=== PATIENT | female | born 1950 | race Caucasian/White ===

== ENCOUNTER 2018-05-26 11:09 | Emergency (ER) | payer MEDICARE, OTHER ==
[~2018-05-26] VITALS: Ht 162.6 cm; Wt 59.0 kg
[~2018-05-26 11:09] MED LIST: ALENDRONATE SOD70 MG PO; ATORVASTATIN CA40 MG PO; BAYER CHEWABLE81 MG PO; BISOPROLOL FUMAR5 M1 PO; BISOPROLOL FUMAR5 MG PO; CALCIUM CITRAT250 MG PO; COZAAR 25 MG TA25 M1 PO; EFFIENT10 MG PO; HYTRIN 5 M5 MG/1 CAP PO; NEURONTIN600 MG PO; NITROGLYCERIN0.4 MG SUBLING; NORVASC10 MG PO; PLAVIX 75 MG TA75 M1 PO; SYMBICORT80 MCG/4.1 INH
[2018-05-26] MEDS ORDERED: CYMBALTA20 MG PO (11:19)
[2018-05-26] MEDS ORDERED: HYDROCODONE-AP1 EAC6 PO (11:59)
[2018-05-26 12:05] VITALS: BP 178/82
== END 2018-05-26 12:06 | disposition home or self-care (01) ==
LOC: M.ERS 11:09
DX: S20.212A Contusion of left front wall of thorax, initial encounter (principal); I10 Essential (primary) hypertension; J44.9 Chronic obstructive pulmonary disease, unspecified; Z90.49 Acquired absence of other specified parts of digestive tract; W10.8XXA Fall (on) (from) other stairs and steps, initial encounter; Y93.89 Activity, other specified; Y92.89 Other specified places as the place of occurrence of the external cause; Y99.8 Other external cause status

== ENCOUNTER → 2018-12-20 | Outpatient (CLI) | payer MEDICARE, OTHER ==
[~2018-12-20] MED LIST changes: +CYMBALTA20 MG PO; +HYDROCODONE-AP1 EAC6 PO
--- NOTE | 2018-12-20 17:06 | CARDNUC ---
[place] [address] CARDIAC NUCLEAR IMAGING REPORT Name: JOURDANHANNAH HENLEYN Room: [facility]#: [id number] Admission: 12/20/18 Attend Phys: Ted Concepcion, Discharge: Date of : 52 Date of Service: 12/20/18 1705 Report #: [id number] THIS REPORT FOR: //name// APPROVED REPORT Study performed: 12/20/2018 09:09:35 Exam: Nuclear Stress Test Indication: Chest pain, CAD s/p PCI Patient Location: Out-Patient Stress Tech: Carli Saavedra Stress Nurse: Garima Valero RN Ht: 5 ft 4 in Wt: 141 lbs BSA: 1.69 m2 BMI: 24.20 Medical History Medical History: Angina, CAD s/p stent, Fatigue, HTN, Hyperlipidemia, Weakness. Medications: Amlodipine, ASA 81 mg, Atorvastatin, Bisoprolol, Losartan. Allergies: Sulfa ABT. Cardiac Risk Factors: Age, HTN, Hyperlipidemia, Past Smoker. Previous Cardiac Procedures: PCI Pretest Chest Pain Characteristics: No chest pain Exercise History: Indeterminate Physical Disabilities: Generalized weakness, fatigue, SOA. Meds Held (24 hrs): Bisoprolol. Stress Test Details Stress Test: Pharmacologic stress was paired with low level exercise. Reason for pharmacologic stress test: Generalized weakness/Fatigue, Nerve pain in back and left leg.. HR Resting HR: 74 bpm Max Heart Rate (APMHR): 153 bpm Max HR Achieved: 119 bpm Target HR (85% APMHR): 130 bpm % of APMHR: 77 Recovery HR: 90 bpm BP Resting BP: 135/80 mmHg Max BP: 157/69 [place] [address] CARDIAC NUCLEAR IMAGING REPORT Name: AHNNAH SOLIMAN KOURTNEY Room: [facility]#: [id number] Admission: 12/20/18 Attend Phys: Ted Concepcion, Discharge: Date of : 52 Date of Service: 12/20/18 1705 Report #: [id number] Resting ECG: Sinus Rhythm Stress ECG: Sinus Rhythm ST Change: None Arrhythmia: None Recovery ECG: Sinus Rhythm Recovery ST Change: None Recovery Arrhythmia: None Clinical Reason for Termination: Completed protocol Stress Symptoms: Dyspnea Exercise duration: 4 min 00 sec Exercise capacity: 2.30 METs Patient tolerated Lexiscan infusion without symptoms. Nurse Comments 68 year old female presented with HX of CP and CAD s/p PCI. Due to patient back and leg (nerve) pain a low, slow treadmill with Lexiscan was performed. Patient tolerated walking Lexiscan well. Recovery unremarkable with PO caffeine, effective. Patient was escorted by staff to Nuclear Medicine for images. Patient was stable with no complaints at that time. Stress ECG Conclusion The baseline 12-lead EKG showed sinus rhythm and ST or T-wave abnormalities. EKGs obtained during and post Lexiscan infusion showed sinus rhythm and no significant ST or T wave changes when compared to baseline. There were no stress-induced arrhythmias. NM EXAM: Myocardial Perfusion REST/STRESS Resting Data Rest SPECT myocardial perfusion imaging was performed in supine position 30 minutes following the intravenous injection of 10.7 mCi of Tc-99m Sestamibi. Time of rest injection: 08:00 The images were gated to evaluate regional wall motion and calculate left ventricular ejection fraction. Administration Route: IV Administration Site: Right AC Pharmacologic Stress Pharmacologic stress test was performed by injecting Regadenoson 0.4 mg IV push followed by the intravenous injection of 32.8 mCi of Tc-99m Sestamibi. Time of stress injection: 09:20 [place] [address] CARDIAC NUCLEAR IMAGING REPORT Name: HANNAH SOLIMAN Room: [facility]#: [id number] Admission: 12/20/18 Attend Phys: Ted Concepcion, Discharge: Date of : 52 Date of Service: 12/20/18 1705 Report #: [id number] Administration Route: IV Administration Site: Right AC Heart Rate at time of stress injection: 94 bpm. Gated Stress SPECT was performed 45 minutes after stress injection. The images were gated to evaluate regional wall motion and calculate left ventricular ejection fraction. Prone imaging was performed. Study Quality Study: Good Artifact: Mild Diaphragmatic artifact Study Data At rest, the left ventricular ejection fraction was 76%.. Post stress, the left ventricular ejection was 80%.. TID = 0.86. Perfusion Perfusion images obtained in the supine position at rest and post Lexiscan stress showed mild anemia of the inferior wall that resolved completely with a stress imaging suggesting diaphragmatic attenuation artifact. No other significant fixed or reversible defects are quite. Wall Motion Normal left ventricular wall motion. Nuclear Conclusion ECG Findings: negative for ischemia Clinical Findings: negative for ischemia Nuclear Findings: negative for ischemia Exercise Capacity: not assessed Left Ventricular Function: normal Risk Study: low Myocardial perfusion images showed no defect to suggest myocardial infarction or ischemia. Left ventricular systolic function appears normal on gated images. This is a low risk study. <Conclusion> The baseline 12-lead EKG showed sinus rhythm and ST or T-wave abnormalities. EKGs obtained during and post Lex[place] [address] CARDIAC NUCLEAR IMAGING REPORT Name: HANNAH SOLIMANN Room: [facility]#: [id number] Admission: 12/20/18 Attend Phys: Ted Concepcion, Discharge: Date of : 52 Date of Service: 12/20/18 1705 Report #: [id number] sinus rhythm and no significant ST or T wave changes when compared to baseline. There were no stress-induced arrhythmias. <ELECTRONICALLY SIGNED> By: Christopher Garcia MD, FACC 12/20/181704 04 04 Christopher Garcia MD, FACC /INF
== END ==
LOC: M.NUC 01-07 17:12
DX: I25.10 Atherosclerotic heart disease of native coronary artery without angina pectoris (principal); I10 Essential (primary) hypertension; E78.5 Hyperlipidemia, unspecified; Z88.2 Allergy status to sulfonamides; Z87.891 Personal history of nicotine dependence; Z79.899 Other long term (current) drug therapy

== ENCOUNTER 2020-04-04 18:46 | Inpatient (IN) | payer MEDICARE, OTHER ==
[~2020-04-04] VITALS: Ht 162.6 cm; Wt 76.7 kg
[2020-04-04 18:57] VITALS: BP 122/60
[2020-04-04 19:31] LABS: ABSOLUTE LYMPHOCYTES 0.6 thou/uL (0.8-5.3); ABSOLUTE MONOCYTES 0.7 thou/uL (0.0-1.2); ABSOLUTE NEUTROPHILS 4.7 thou/uL (1.6-8.1); BASOPHILS 0.5 %; EOSINOPHILS 0.2 %; HEMATOCRIT 36.6 % (37.0-47.0); HEMOGLOBIN 12.3 gm/dL (12.0-15.0); LYMPHOCYTES 9.8 %; MCH 32.4 pg (26.0-34.0); MCHC 33.5 g/dL (28.0-37.0); MCV 96.9 fL (80.0-100.0); MONOCYTES 11.7 %; MPV 9.4 fl. (7.2-11.1); NUCLEATED RBCS 0 /100WBC; PLATELET COUNT* 201 thou/uL (150-400); POLYS 77.8 %; RBC 3.78 mil/uL (4.20-5.00); RDW-CV 12.9 % (10.5-14.5); WBC 6.1 thou/uL (4.0-11.0)
[2020-04-04 19:39] LABS: APTT 26.2 Seconds (25.0-31.3); CALCIUM 7.9 mg/dL (8.5-10.1); CREATININE 1.7 mg/dL (0.6-1.3)
[2020-04-04 19:49] LABS: ALBUMIN 2.9 g/dL (3.4-5.0); MAGNESIUM 1.9 mg/dL (1.8-2.4); TOTAL BILIRUBIN 0.3 mg/dL (<0.1-1.0)
[2020-04-04 20:00] VITALS: BP 104/53
[2020-04-04 21:24] VITALS: BP 117/60
[2020-04-05] VITALS (7 sets, daily range): BP systolic 84–107; BP diastolic 44–78
[2020-04-05 10:23] LABS: CALCIUM 7.4 mg/dL (8.5-10.1); CREATININE 1.5 mg/dL (0.6-1.3); MAGNESIUM 1.9 mg/dL (1.8-2.4); POTASSIUM 4.8 mmol/L (3.5-5.1)
[2020-04-05 10:25] LABS: BE -9.5 mmol/L (-2 to +3); PCO2 30.8 mmHg (35.0-45.0); PO2 60.3 mmHg (75.0-100.0); pH 7.318 (7.340-7.450)
[2020-04-05 14:30] LABS: CALCIUM 7.2 mg/dL (8.5-10.1); CREATININE 1.4 mg/dL (0.6-1.3); POTASSIUM 4.2 mmol/L (3.5-5.1)
[2020-04-05 20:34] LABS: BE -9.6 mmol/L (-2 to +3); PCO2 27.7 mmHg (35.0-45.0); pH 7.342 (7.340-7.450)
[2020-04-06] VITALS (8 sets, daily range): BP systolic 100–138; BP diastolic 50–81
[2020-04-06 03:39] LABS: HEMATOCRIT 32.6 % (37.0-47.0); HEMOGLOBIN 11.1 gm/dL (12.0-15.0); MCH 32.5 pg (26.0-34.0); MCHC 34.1 g/dL (28.0-37.0); MCV 95.5 fL (80.0-100.0); MPV 9.6 fl. (7.2-11.1); NUCLEATED RBCS 0 /100WBC; PLATELET COUNT* 251 thou/uL (150-400); RBC 3.41 mil/uL (4.20-5.00); RDW-CV 12.7 % (10.5-14.5)
[2020-04-06 03:58] LABS: ALBUMIN 2.3 g/dL (3.4-5.0); CALCIUM 7.3 mg/dL (8.5-10.1); CREATININE 1.3 mg/dL (0.6-1.3); MAGNESIUM 2.6 mg/dL (1.8-2.4); POTASSIUM 4.1 mmol/L (3.5-5.1); TOTAL BILIRUBIN 0.2 mg/dL (<0.1-1.0); TOTAL PROTEIN 5.8 g/dL (6.4-8.2)
[2020-04-06 06:13] LABS: ABSOLUTE LYMPHOCYTES 0.7 thou/uL (0.8-5.3); ABSOLUTE MONOCYTES 0.1 thou/uL (0.0-1.2); ABSOLUTE NEUTROPHILS 10.2 thou/uL (1.6-8.1)
[2020-04-06 06:14] LABS: BURR CELLS 1+; PLATELET ESTIMATE ADEQUATE
[2020-04-06 06:15] LABS: POLYCHROMASIA 1+
[2020-04-06 09:02] LABS: BE -0.6 mmol/L (-2 to +3); PCO2 34.1 mmHg (35.0-45.0); pH 7.445 (7.340-7.450)
[2020-04-06 09:07] LABS: PO2 54.8 mmHg (75.0-100.0)
--- NOTE | 2020-04-06 10:45 | EKG ---
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 04/06/20 1044 1855 1855 Eagle Ospina MD, [facility] /EPI
--- NOTE | 2020-04-06 14:34 | EKG ---
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 : 1950 Requested By: Maximiliano Cummings Order Number: [id number] Reading MD: Christopher Garcia Measurements Intervals [place] Rate: 86 P: 80 TN: 134 QRS: 46 QRSD: 89 T: 41 QT: 389 QTc: 466 Interpretive Statements Sinus rhythm Ventricular premature complex Baseline wander in lead(s) V6 Compared to ECG 04/04/2020 18:55:44 Ventricular premature complex(es) now present Myocardial infarct finding no longer present Electronically Signed On 04-06-2020 14:34:33 CDT by Christopher Garcia [email or web address] <ELECTRONICALLY SIGNED> By: Christopher Garcia MD, FACC 04/06/20 1434 1058 1058 Christopher Garcia MD, FAC /EPI
[2020-04-07] VITALS: BP 108/63
[2020-04-07 04:00] VITALS: BP 109/79
[2020-04-07 06:38] LABS: ABSOLUTE LYMPHOCYTES 0.5 thou/uL (0.8-5.3); ABSOLUTE MONOCYTES 0.9 thou/uL (0.0-1.2); ABSOLUTE NEUTROPHILS 15.3 thou/uL (1.6-8.1); BASOPHILS 0.1 %; HEMATOCRIT 34.7 % (37.0-47.0); HEMOGLOBIN 11.4 gm/dL (12.0-15.0); LYMPHOCYTES 2.9 %; MCH 31.6 pg (26.0-34.0); MCHC 32.9 g/dL (28.0-37.0); MCV 96.1 fL (80.0-100.0); MONOCYTES 5.3 %; NUCLEATED RBCS 0 /100WBC; POLYS 91.7 %; RBC 3.62 mil/uL (4.20-5.00); RDW-CV 12.8 % (10.5-14.5); WBC 16.7 thou/uL (4.0-11.0)
[2020-04-07 06:42] LABS: PLATELET COUNT* 359 thou/uL (150-400)
[2020-04-07 06:55] LABS: ALBUMIN 2.4 g/dL (3.4-5.0); CALCIUM 7.3 mg/dL (8.5-10.1); CREATININE 1.2 mg/dL (0.6-1.3); MAGNESIUM 2.2 mg/dL (1.8-2.4); PHOSPHORUS* 3.7 mg/dL (2.5-4.9); POTASSIUM 4.1 mmol/L (3.5-5.1); TOTAL BILIRUBIN 0.3 mg/dL (<0.1-1.0); TOTAL PROTEIN 6.1 g/dL (6.4-8.2)
[2020-04-07 08:00] VITALS: BP 129/69
[2020-04-07 13:13] VITALS: BP 141/66
[2020-04-07 15:19] LABS: CALCIUM 7.7 mg/dL (8.5-10.1); CREATININE 1.2 mg/dL (0.6-1.3); POTASSIUM 3.7 mmol/L (3.5-5.1)
[2020-04-07 17:06] LABS: HIV-1/HIV-2 ANTIBODY Non Reactive (Non Reactive)
[2020-04-07 17:06] LABS: HEPATITIS B SURFACE AG Negative (Negative)
[2020-04-07 19:01] VITALS: BP 137/71
[2020-04-07 20:00] VITALS: BP 129/74
[2020-04-08 00:32] VITALS: BP 134/67
[2020-04-08 04:43] VITALS: BP 125/59
[2020-04-08 05:20] LABS: ABSOLUTE LYMPHOCYTES 0.5 thou/uL (0.8-5.3); ABSOLUTE MONOCYTES 0.8 thou/uL (0.0-1.2); ABSOLUTE NEUTROPHILS 13.1 thou/uL (1.6-8.1); BASOPHILS 0.1 %; HEMATOCRIT 34.5 % (37.0-47.0); HEMOGLOBIN 11.6 gm/dL (12.0-15.0); LYMPHOCYTES 3.5 %; MCHC 33.7 g/dL (28.0-37.0); MONOCYTES 5.8 %; MPV 9.7 fl. (7.2-11.1); NUCLEATED RBCS 0 /100WBC; PLATELET COUNT* 384 thou/uL (150-400); POLYS 90.6 %; RBC 3.63 mil/uL (4.20-5.00); RDW-CV 13.1 % (10.5-14.5); WBC 14.5 thou/uL (4.0-11.0)
[2020-04-08 05:31] LABS: ALBUMIN 2.5 g/dL (3.4-5.0); CALCIUM 7.8 mg/dL (8.5-10.1); CREATININE 1.4 mg/dL (0.6-1.3); POTASSIUM 3.3 mmol/L (3.5-5.1); TOTAL BILIRUBIN 0.4 mg/dL (<0.1-1.0); TOTAL PROTEIN 6.1 g/dL (6.4-8.2)
[2020-04-08 08:00] VITALS: BP 140/77
[2020-04-08 12:25] VITALS: BP 140/68
[2020-04-08 20:00] VITALS: BP 132/76
[2020-04-09] VITALS: BP 139/66
[2020-04-09 04:00] VITALS: BP 147/68
[2020-04-09 06:00] LABS: ABSOLUTE LYMPHOCYTES 0.5 thou/uL (0.8-5.3); ABSOLUTE MONOCYTES 0.8 thou/uL (0.0-1.2); ABSOLUTE NEUTROPHILS 10.3 thou/uL (1.6-8.1); BASOPHILS 0.2 %; HEMOGLOBIN 11.3 gm/dL (12.0-15.0); LYMPHOCYTES 4.2 %; MCH 31.7 pg (26.0-34.0); MCHC 33.2 g/dL (28.0-37.0); MCV 95.4 fL (80.0-100.0); MPV 9.3 fl. (7.2-11.1); NUCLEATED RBCS 0 /100WBC; PLATELET COUNT* 404 thou/uL (150-400); POLYS 88.6 %; RBC 3.56 mil/uL (4.20-5.00); RDW-CV 13.1 % (10.5-14.5); WBC 11.6 thou/uL (4.0-11.0)
[2020-04-09 06:14] LABS: CALCIUM 8.2 mg/dL (8.5-10.1); CREATININE 1.3 mg/dL (0.6-1.3); MAGNESIUM 2.1 mg/dL (1.8-2.4); POTASSIUM 4.2 mmol/L (3.5-5.1)
[2020-04-09 08:00] VITALS: BP 128/70
[2020-04-09 12:00] VITALS: BP 125/66
[2020-04-09 16:00] VITALS: BP 114/63
[2020-04-09 20:00] VITALS: BP 136/78
[2020-04-10] VITALS: BP 143/73
[2020-04-10 04:00] VITALS: BP 146/67
[2020-04-10 08:00] VITALS: BP 149/88
[2020-04-10 13:16] VITALS: BP 111/70
[2020-04-10 17:48] VITALS: BP 117/66
[2020-04-10 20:45] VITALS: BP 129/74
[2020-04-11] VITALS: BP 125/68
[2020-04-11 04:00] VITALS: BP 140/60
[2020-04-11 08:09] VITALS: BP 148/75
[2020-04-11] MEDS ORDERED: VENTOLIN HFA INH8 GM INH (08:20)
[2020-04-11] MEDS ORDERED: PREDNISONE 10 M10 MG PO (08:20)
[2020-04-11 11:43] VITALS: BP 148/75
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
== END 2020-04-11 14:02 | disposition home health service (06) | DRG 177 ==
LOC: M.ERS 18:46 → M.2W 20:19 → M.TBA-ER 20:19 → M.2W 21:36
PROVIDERS: Family Medicine; Internal Medicine; Internal Medicine Critical Care Medicine; ADMIT Internal Medicine; ATTEND Internal Medicine
PROC: XW033E5 Introduction of Remdesivir Anti-infective into Peripheral Vein, Percutaneous Approach, New Technology Group 5 (ICD-10-PCS; 2020-04-05)
PROC: 5A09357 Assistance with Respiratory Ventilation, Less than 24 Consecutive Hours, Continuous Positive Airway Pressure (ICD-10-PCS; principal; 2020-04-07)
PROC: 5A09357 Assistance with Respiratory Ventilation, Less than 24 Consecutive Hours, Continuous Positive Airway Pressure (ICD-10-PCS; 2020-04-08)
PROC: 5A09357 Assistance with Respiratory Ventilation, Less than 24 Consecutive Hours, Continuous Positive Airway Pressure (ICD-10-PCS; 2020-04-09)
PROC: 02HV33Z Insertion of Infusion Device into Superior Vena Cava, Percutaneous Approach (ICD-10-PCS; 2020-04-09)
PROC: 5A09357 Assistance with Respiratory Ventilation, Less than 24 Consecutive Hours, Continuous Positive Airway Pressure (ICD-10-PCS; 2020-04-10)
PROC: 5A09357 Assistance with Respiratory Ventilation, Less than 24 Consecutive Hours, Continuous Positive Airway Pressure (ICD-10-PCS; 2020-04-11)
DX: U07.1 COVID-19 (principal); J12.89 Other viral pneumonia; J96.21 Acute and chronic respiratory failure with hypoxia; N17.0 Acute kidney failure with tubular necrosis; J15.9 Unspecified bacterial pneumonia; E87.1 Hypo-osmolality and hyponatremia; J44.0 Chronic obstructive pulmonary disease with (acute) lower respiratory infection; E44.1 Mild protein-calorie malnutrition; E87.2 Acidosis; J44.1 Chronic obstructive pulmonary disease with (acute) exacerbation; N18.3 Chronic kidney disease, stage 3 (moderate); I10 Essential (primary) hypertension; M19.90 Unspecified osteoarthritis, unspecified site; M81.0 Age-related osteoporosis without current pathological fracture; E78.5 Hyperlipidemia, unspecified; F41.9 Anxiety disorder, unspecified; I95.2 Hypotension due to drugs; Z90.49 Acquired absence of other specified parts of digestive tract; Z79.82 Long term (current) use of aspirin; Z68.29 Body mass index [BMI] 29.0-29.9, adult; Z79.899 Other long term (current) drug therapy; Z87.891 Personal history of nicotine dependence; Z72.89 Other problems related to lifestyle

== ENCOUNTER → 2020-04-30 | Outpatient (CLI) | payer MEDICARE, OTHER ==
[~2020-04-30] MED LIST changes: +ALBUTEROL2.5 MG/0.1 INH; +LUNESTA3 MG PO; +NEURONTIN300 MG PO; +PREDNISONE 10 M10 MG PO; +SYNTHROID88 MC1 PO; +VENTOLIN HFA INH8 GM INH; +VITAMIN D3100 MCG PO
== END ==
LOC: M.LAB 16:05
PROVIDERS: ATTEND Internal Medicine Gastroenterology
DX: Z01.812 Encounter for preprocedural laboratory examination (principal); Z20.828 Contact with and (suspected) exposure to other viral communicable diseases

== ENCOUNTER → 2020-05-05 | Day surgery (SDC) | payer MEDICARE, OTHER ==
--- NOTE | ~2020-05-05 | PROC ---
[address] [address] PROCEDURE REPORT Name: HANNAH SOLIMANN Room: [facility].#: [id number] Admission: 05/05/20 Attend Phys: Terrell Sigala DO Discharge: Date of : 52 Report #: [id number] THIS REPORT FOR: //name// cc: Wallace Cobb Brad DO ~ THIS REPORT FOR: //name// For GI report, please see the Provation report in Perceptive 7 content. By: [id number] Records Staff CHRIS /JOHN
--- NOTE | 2020-05-07 13:08 | PATH ---
[facility] [address] [place] [address] PATHOLOGY RPT PROCEDURE Name: HANNAH HENRIQUEZ [id number] Admission: 05/05/20 Date of : 52 Discharge: Report #: [id number] Path Case #: [id number] [facility] Accession Number: [id number] . 01 Material submitted: . PART A: colon - PROXIMAL ASCENDING COLON POLYP X2. Modifiers: proximal, ascending PART B: colon - MID-TRANSVERSE COLON POLYP. Modifiers: mid, transverse . 01 Clinical history: . RECTAL BLEED . 02 Diagnosis: A. Proximal ascending colon polyp x 2: - Serrated adenoma and tubular adenoma, negative for high grade dysplasia. . B. Mid transverse colon polyp: - Tubular adenoma, negative for high grade dysplasia. (GUILLERMO/db; 05/07/2020) LBQ 05/07/2020 1110 Local . 02 Electronically signed: . Choco Forde MD, Pathologist NPI- [id number] . 01 Gross description: . A. The specimen is received in formalin, labeled "Hannah Henriquez, proximal ascending colon polyp x2" and consists of 4 fragments of pink-ling tissue measuring between 0.1 x 0.1 cm and 0.5 x 0.4 cm which are entirely submitted in A1. . B. The specimen is received in formalin, labeled "Hannah Henriquez, mid transverse colon polyp" and consists of a fragment of pink-ling tissue measuring 0.6 x 0.4 cm which is entirely submitted in B1. (SDY; 05/06/2020) SYU/SYU 05/06/2020 1454 Local . 02 Pathologist provided ICD-10: D12.2, D12.3 . 02 CPT . 375440, 608016 Specimen Comment: A courtesy copy of this report has been sent to [phone], [phone] Specimen Comment: [phone] Specimen Comment: Report sent to / DR MALONE Performed at: [address] [place] [address] PATHOLOGY RPT PROCEDURE Name: HANNAH HENRIQUEZ Room: [facility]#: [id number] Admission: 05/05/20 Date of : 52 Discharge: Report #: [id number] Path Case #: [id number] [address] [facility] [address], [place] [id number] MD Jacob Bueno MD Phone: [phone] Performed at: 02 [facility] [address], [place], [place] [id number] MD Choco Forde MD Phone: [phone]
== END | disposition home or self-care (01) ==
LOC: M.SUR 07:59
PROVIDERS: ATTEND Internal Medicine Gastroenterology
DX: R19.5 Other fecal abnormalities (principal); K64.4 Residual hemorrhoidal skin tags; K63.5 Polyp of colon; K57.30 Diverticulosis of large intestine without perforation or abscess without bleeding; K63.89 Other specified diseases of intestine; K62.5 Hemorrhage of anus and rectum; R11.2 Nausea with vomiting, unspecified; J44.9 Chronic obstructive pulmonary disease, unspecified; Z79.899 Other long term (current) drug therapy; Z98.890 Other specified postprocedural states

== ENCOUNTER 2020-05-13 15:00 | Emergency (ER) | payer MEDICARE, OTHER ==
[~2020-05-13] VITALS: Ht 162.6 cm; Wt 61.2 kg
[2020-05-13 15:55] LABS: ABSOLUTE BASOPHILS 0.2 thou/uL (0.0-0.2); ABSOLUTE EOSINOPHILS 0.1 thou/uL (0.0-0.7); ABSOLUTE LYMPHOCYTES 2.1 thou/uL (0.8-5.3); ABSOLUTE NEUTROPHILS 3.7 thou/uL (1.6-8.1); BASOPHILS 2.4 %; EOSINOPHILS 1.3 %; HEMATOCRIT 35.1 % (37.0-47.0); HEMOGLOBIN 11.5 gm/dL (12.0-15.0); LYMPHOCYTES 29.7 %; MCH 31.7 pg (26.0-34.0); MCHC 32.7 g/dL (28.0-37.0); MCV 97.2 fL (80.0-100.0); MONOCYTES 14.3 %; MPV 8.6 fl. (7.2-11.1); NUCLEATED RBCS 0 /100WBC; PLATELET COUNT* 389 thou/uL (150-400); POLYS 52.3 %; RBC 3.62 mil/uL (4.20-5.00); RDW-CV 14.7 % (10.5-14.5)
[2020-05-13 16:11] LABS: CALCIUM 9.3 mg/dL (8.5-10.1); CREATININE 1.2 mg/dL (0.6-1.3); POTASSIUM 4.2 mmol/L (3.5-5.1)
[2020-05-13 16:15] LABS: ALBUMIN 3.7 g/dL (3.4-5.0); TOTAL BILIRUBIN 0.2 mg/dL (<0.1-1.0); TOTAL PROTEIN 7.5 g/dL (6.4-8.2)
[2020-05-13 16:40] VITALS: BP 112/66
== END 2020-05-13 16:35 | disposition home or self-care (01) ==
LOC: M.ERS 15:00
PROVIDERS: Emergency Medicine Emergency Medical Services
DX: R51.9 Headache, unspecified (principal); R53.83 Other fatigue; I10 Essential (primary) hypertension; M19.90 Unspecified osteoarthritis, unspecified site; J44.9 Chronic obstructive pulmonary disease, unspecified; Z79.899 Other long term (current) drug therapy; Z79.82 Long term (current) use of aspirin; Z90.49 Acquired absence of other specified parts of digestive tract